=== PATIENT | female | born 1945 | race Caucasian/White ===

== ENCOUNTER 2017-07-02 08:14 | Outpatient (CLI) | payer BC | END 2017-07-02 08:15 | disposition home or self-care (01) | LOC: BICMAMMO 08:14 | PROVIDERS: ATTEND Internal Medicine | DX: Z13.820 Encounter for screening for osteoporosis; N64.89 Other specified disorders of breast; Z85.89 Personal history of malignant neoplasm of other organs and systems; Z12.31 Encounter for screening mammogram for malignant neoplasm of breast; M85.88 Other specified disorders of bone density and structure, other site | CPT/HCPCS: 77063; 77067; 77080 ==

== ENCOUNTER 2017-07-10 08:56 | Outpatient (CLI) | payer BC | END 2017-07-10 08:57 | disposition home or self-care (01) | LOC: BICMAMMO 08:56 | PROVIDERS: ATTEND Internal Medicine | DX: N63.10 Unspecified lump in the right breast, unspecified quadrant (principal); Z85.89 Personal history of malignant neoplasm of other organs and systems | CPT/HCPCS: G0279 ==